=== PATIENT | male | born 1985 | race Asian ===

== ENCOUNTER 2017-01-13 12:34 | Observation (INO) | payer BC ==
[~2017-01-13] VITALS: Ht 180.3 cm; Wt 86.6 kg
[2017-01-13 13:03] LABS: HEMATOCRIT 46.3 % (38.0-50.0); MCH 30.1 PG (29.0-34.0); MCHC 35.6 G/DL (30.0-36.0); MCV 84.3 FL (86-99); MEAN PLAT.VOLUME 9.4 uM^3 (9.0-12.4); PLATELET COUNT 241 K/uL (156-360); RBC DIS.WIDTH-CV 12.1 % (11.8-14.6); RBC DIS.WIDTH-SD 36.6 % (39-53); RED BLOOD COUNT 5.49 M/uL (4.00-5.50); WHITE BLOOD COUNT 11.9 K/uL (4.1-10.2)
[2017-01-13 13:13] LABS: CHLORIDE 99 mEq/L (99-109); POTASSIUM 3.8 mEq/L (3.7-5.4); SODIUM 134 mEq/L (136-147)
[2017-01-13 13:15] LABS: GLUCOSE 99 mg/dL (70-99)
[2017-01-13 13:16] LABS: ANION GAP 17 MEQ/L (2-14)
[2017-01-13 13:17] LABS: TOTAL BILIRUBIN 0.8 mg/dL (0.0-1.0)
[2017-01-13 13:19] LABS: ALKALINE PHOSPHATASE 105 IU/L (3-129); GFR ESTIMATE (CALCULATED) 57 mL/min/
[2017-01-13 13:20] LABS: UREA NITROGEN (BUN) 17 mg/dL (9-23)
[2017-01-13 13:22] LABS: LIPASE 11 U/L (1.0-51.0); TOTAL CK 1099 IU/L (1-294)
[2017-01-13 13:26] LABS: TROP-I INTERPRETATION NEGATIVE; TROPONIN-I < 0.01 ng/mL (0.0-0.30)
[2017-01-13 13:30] LABS: CK-MB 4.3 ng/mL (0.0-4.9)
[2017-01-13 13:57] LABS: CREATINE KINASE 1093 IU/L (1-294)
[2017-01-13 14:19] LABS: ADD MIUA? NO; BILIRUBIN NEGATIVE; BLOOD NEGATIVE; COLOR YELLOW ((YELLOW)); GLUCOSE (STRIP) NEGATIVE; KETONES NEGATIVE; LEUKOCYTES NEGATIVE; NITRITE NEGATIVE; PROTEIN (STRIP) NEGATIVE; SPECIFIC GRAVITY 1.006 (1.000-1.030); UROBILINOGEN 0.2 MG/DL (0.2-1.0)
[2017-01-13] MEDS ORDERED: MULTI VITAMIN1 EACH PO (14:21)
[2017-01-13] MEDS ORDERED: BUPROPION XL150 MG PO (14:21)
[2017-01-13] MEDS ORDERED: CITALOPRAM HBR40 MG PO (14:21)
[2017-01-13 15:08] LABS: CHLORIDE 105 mEq/L (99-109); POTASSIUM 4.4 mEq/L (3.7-5.4); SODIUM 137 mEq/L (136-147)
[2017-01-13 15:09] LABS: GLUCOSE 94 mg/dL (70-99)
[2017-01-13 15:11] LABS: ANION GAP 12 MEQ/L (2-14)
[2017-01-13 15:13] LABS: GFR ESTIMATE (CALCULATED) > 59 mL/min/
[2017-01-13 15:14] LABS: UREA NITROGEN (BUN) 15 mg/dL (9-23)
[2017-01-13 15:16] LABS: TOTAL CK 1163 IU/L (1-294)
[2017-01-13 15:23] LABS: CK-MB 4.9 ng/mL (0.0-4.9)
[2017-01-13 15:36] LABS: CREATINE KINASE 1163 IU/L (1-294)
[2017-01-13 15:56] VITALS: BP 149/101
== END 2017-01-13 15:53 | disposition left against medical advice (07) ==
LOC: EME 12:34 → EDOF 13:46
PROVIDERS: Nurse Practitioner Family
DX: T67.0XXA Heatstroke and sunstroke, initial encounter (principal); M62.82 Rhabdomyolysis; N17.9 Acute kidney failure, unspecified; R25.2 Cramp and spasm; E86.0 Dehydration; F17.210 Nicotine dependence, cigarettes, uncomplicated; Z91.040 Latex allergy status; Z88.8 Allergy status to other drugs, medicaments and biological substances
CPT/HCPCS: 80048 91; 80053; 81003; 82550; 82550 91; 82553; 83690; 84484; 85027; 93005; 99281; 99285; G0378; J2405; J7030

== ENCOUNTER 2018-01-20 16:38 | Emergency (ER) | payer BC ==
[~2018-01-20] VITALS: Ht 180.3 cm; Wt 80.1 kg
[~2018-01-20 16:38] MED LIST: BUPROPION XL150 MG PO; CITALOPRAM HBR40 MG PO; MULTI VITAMIN1 EACH PO
[2018-01-20 17:37] LABS: BASOPHIL (%) 0.4 % (0-1); BASOPHIL COUNT 0.1 K/uL (0-0.1); EOSINOPHIL (%) 0.4 % (0-5); EOSINOPHIL COUNT 0.1 K/uL (0-0.3); HEMATOCRIT 44.7 % (38.0-50.0); HEMOGLOBIN 16.1 G/DL (12.5-16.6); IMMATURE GRANULOCYTE (%) 0.7 % (0.0-0.7); LYMPHOCYTE (%) 13.2 % (15-42); LYMPHOCYTE COUNT 1.6 K/uL (1.0-2.8); MCH 31.8 PG (29.0-34.0); MCV 88.3 FL (86-99); MONOCYTE (%) 9.4 % (3-12); MONOCYTE COUNT 1.1 K/uL (0-0.8); NEUTROPHIL (%) 75.9 % (45-76); NEUTROPHIL COUNT 9.2 K/uL (1.8-6.4); PLATELET COUNT 238 K/uL (156-360); RBC DIS.WIDTH-CV 12.8 % (11.8-14.6); RBC DIS.WIDTH-SD 41.5 % (39-53); RED BLOOD COUNT 5.06 M/uL (4.00-5.50); WHITE BLOOD COUNT 12.2 K/uL (4.1-10.2)
[2018-01-20 17:49] LABS: CHLORIDE 101 mEq/L (99-109); POTASSIUM 4.1 mEq/L (3.7-5.4); SODIUM 137 mEq/L (136-147)
[2018-01-20 17:50] LABS: GLUCOSE 104 mg/dL (70-99)
[2018-01-20 17:54] LABS: CREATININE 1.2 mg/dL (0.6-1.3); GFR ESTIMATE (CALCULATED) > 59 mL/min/ (58.99-99999)
[2018-01-20 17:55] LABS: UREA NITROGEN (BUN) 10 mg/dL (9-23)
[2018-01-20] MEDS ORDERED: BACTRIM,SEPT1 TABLET PO (21:03)
[2018-01-20] MEDS ORDERED: CLINDAMYCIN HC150 MG PO (21:03)
[2018-01-20 21:21] VITALS: BP 145/101
== END 2018-01-20 21:35 | disposition home or self-care (01) ==
LOC: EME 16:38
DX: L02.01 Cutaneous abscess of face (principal); F32.9 Major depressive disorder, single episode, unspecified; F41.9 Anxiety disorder, unspecified; F17.200 Nicotine dependence, unspecified, uncomplicated; Z88.8 Allergy status to other drugs, medicaments and biological substances
CPT/HCPCS: 70487; 80048; 81003; 83605; 85025; 99281; 99284; J1885; J7030